=== PATIENT | male | born 1995 | race Caucasian/White ===

== ENCOUNTER 2017-01-11 03:26 | Emergency (ER) | payer BC ==
--- NOTE | 2017-01-11 03:46 | ERNOTE ---
Back Pain ER HPI Date of Service: 01/11/17 Time Seen by Provider: 01/11/17 03:36 Source: patient Exam Limitations: no limitations Immunizations: IMMUNIZATION HX Immunizations Up to Date Yes History of Influenza Vaccine Yes Hx Pneumococcal Vaccination No Allergies/Adverse Reactions: Allergies cat dander Allergy (Verified 01/11/17 03:35) dog dander Allergy (Verified 01/11/17 03:35) mold Allergy (Verified 01/11/17 03:35) No Known Drug Allergies Allergy (Verified 01/11/17 03:35) peach Allergy (Verified 01/11/17 03:35) Home Medications: HOME MEDICATIONS Ciprofloxacin HCl [Cipro] 500 mg PO BID #20 tablet 01/11/17 [Last Taken Unknown] HYDROcodone/ACETAMINOPHEN [Start 5-325] 1 - 2 tab PO QID PRN #20 tab 01/11/17 [ Last Taken Unknown] metroNIDAZOLE [Flagyl] 500 mg PO Q12H #20 tab 01/11/17 [Last Taken Unknown] Narrative: Patient comes into the ER stating that approximately 2 days ago he fell approximately 7 feet from a ladder onto his left side of his chest and abdomen. Chin has been complaining of severe pain in the left flank and left lower chest wall in the midaxillary line especially when he takes a deep breath. He denies any shortness of breath and substernal chest pains or syncope nausea vomiting diarrhea constipation or hematuria. However when specifically asked about hematuria patient states that he doesn't pay attention. Review of Systems - Review of Systems Constitutional: Present: no symptoms reported EYE: Present: no symptoms reported ENT: Present: no symptoms reported Respiratory: Present: no symptoms reported Cardiology: Present: no symptoms reported Gastrointestinal/Abdominal: Present: no symptoms reported Genitourinary: Present: no symptoms reported Musculoskeletal: Present: See HPI Skin: Present: no symptoms reported - Patient's Past Medical History Patient History - Medical: Hypothyroidism Patient History - Cardiac/Respiratory: No pertinent hx Patient History - Cancer: No Hx of Cancer Patient History - Surgical Procedures: No surgical history Patient History - Other: None - Social History Living Situations: home Abuse History: No History of abuse Psych History: No pertinent hx Smoking Status: Former smoker Have you smoked in the past 12 months: No Do you dip or chew tobacco: No Alcohol Use: rarely Drug Use: none - Immunizations Immunizations Up to Date: Yes Hx Pneumococcal Vaccination: No History of Influenza Vaccine: Yes Physical Exam - Physical Exam General Appearance: Present: wd/wn, alert, mild distress - patient appears to be in very mild distress holding onto his left flank complaining of worsening pain. Head Exam: Present: normal inspection, no evidence of injury - there is no history of loss of consciousness patient does not have a headache blurry vision he doesn't have any dizziness and has also a known neck pain on exam Ears, Nose, Throat: Present: normal ENT inspection, normal pharynx Neck: Present: normal inspection, nontender, supple, full range of motion Respiratory: Present: no respiratory distress, normal breath sounds, no accessory muscle use, chest nontender, lungs clear Cardiovascular/Chest: Present: regular rate, rhythm, no murmur, normal peripheral pulses Gastrointestinal/Abdominal: Present: other - patient is exquisitely tender upon palpation of ribs #[id number] 10/15/2009 on the left side in the mid axillary line there are no ecchymoses or subcutaneous emphysema or redness or bruising or deformities and that corresponding region. Back Exam: Present: other - he has no CVA tenderness however when he takes a deep breath he feels pain in his left flank. Extremity Exam: Present: normal inspection, normal range of motion Neurological Exam: Present: alert, oriented, normal mood/affect, no motor/ sensory deficits ED Progress - Results and Orders Patient's Lab Results:: I have reviewed the patient's lab results. - Vital Signs Patient's Vital Signs:: I have reviewed the patient's vital signs. Vital Signs: Vital Signs 01/11/17 03:29 Temperature 36.1 C L Pulse Rate 89 Respiratory 18 Rate Blood Pressure 131/76 O2 Sat by Pulse 100 Oximetry - CT/Ultrasound CT/Ultrasound Narrative: CT of the chest abdomen and pelvis was ordered with contrast which revealed a descending colon colitis. No other traumatic findings were noted - Progress/Reassessment Chief Complaint: Back Pain Plan - Plan Plan: This patient will be treated for a descending colon colitis with Flagyl 500 mg IV and Cipro 400 mg IV he will be given Dilaudid 1 mg IV and will be sent home with Oral Antibiotics and pain medication and he is to follow-up with his primary care physician. Departure Clinical Impression: Colitis Contusion, flank Qualifiers: Encounter type: initial encounter Qualified Code(s): S30.1XXA - Contusion of abdominal wall, initial encounter - Departure Disposition: Home self-care Condition: Good Instructions: Contusion, [id number], Colitis Additional Instructions: Please follow-up with your primary care doctor in the next week for follow-up of your colitis. Prescriptions: Ciprofloxacin HCl [Cipro] 500 mg PO BID #20 tablet HYDROcodone/ACETAMINOPHEN [Start 5-325] 1 - 2 tab PO QID PRN #20 tab PRN Reason: Pain metroNIDAZOLE [Flagyl] 500 mg PO Q12H #20 tab
[2017-01-11 03:53] LABS: Urine Bilirubin Negative (NEGATIVE); Urine Blood Negative /ul (NEGATIVE); Urine Ketone Negative (NEGATIVE); Urine Nitrite Negative (NEGATIVE); Urine Protein 15 mg/dL (NEGATIVE); Urine Specific Gravity >=1.030 SP.GR. (1.005-1.030); Urine Urobilinogen Normal (NORMAL)
[2017-01-11 04:00] LABS: Anion Gap 12.5 mmol/L (6.8-13.8); BUN/Creatinine Ratio 11.2 (9.0-21.6); Calcium * 9.1 mg/dL (7.9-10.9); Carbon Dioxide 28.5 mmol/L (24-32.6); Estimated Creat Clear 142.2
[2017-01-11 04:01] LABS: Urine Appearance Clear; Urine Bacteria None Seen; Urine Color Yellow; Urine RBC 0-5 /hpf (0-5); Urine WBC 0-5 /hpf (0-5)
[2017-01-11] MEDS ORDERED: KETOROLAC TROMETHAMINE 60 MG/2 ML VIAL IM ONE (04:56)
[2017-01-11] MEDS ORDERED: metroNIDAZOLE/SODIUM CHLORIDE 500 MG/100 ML BAG IV ONE (05:14)
[2017-01-11] MEDS ORDERED: NORMAL SALINE 1,000 ML IV ONE (05:15)
[2017-01-11] MEDS ORDERED: CIPROFLOXACIN IN 5 % DEXTROSE 400 MG/200 ML BAG IV SCH (05:15)
[2017-01-11] MEDS ORDERED: HYDROmorphone HCL 1 MG/ML DISP.SYRIN IV ONE (05:16)
[2017-01-11 05:17] LABS: Hematocrit 46.3 % (42.0-52.0); Hemoglobin 15.6 gm/dL (13.5-18.0); Mean Corpuscular Hemoglobin 28.6 pg (27-31); Mean Corpuscular Hgb Conc 33.7 g/dl (32-36); Mean Platelet Volume 12.2 fl (6.0-9.5); Neutrophil # 5.4 K/mm3 (1.3-6.0); Neutrophil % 48.2 % (42-75.0); Platelet Count 232 K/mm3 (150-450); Red Blood Count 5.45 M/mm3 (4.7-6.0); Red Cell Distribution Width 13.2 % (11.5-14.0); White Blood Count 11.2 K/mm3 (4.0-10.5)
[2017-01-11] MEDS ORDERED: KETOROLAC TROMETHAMINE 30 MG/ML VIAL ONE (05:26)
[2017-01-11] MEDS ORDERED: KETOROLAC TROMETHAMINE 30 MG/ML VIAL IV ONE (05:32)
[2017-01-11] MEDS ORDERED: HYDROmorphone HCL 1 MG/ML DISP.SYRIN ONE (06:33)
[2017-01-11 07:41] VITALS: BP 111/65
== END 2017-01-11 07:40 | disposition home or self-care (01) ==
LOC: ER 03:26
DX: K52.9 Noninfective gastroenteritis and colitis, unspecified (principal); S30.1XXA Contusion of abdominal wall, initial encounter; W11.XXXA Fall on and from ladder, initial encounter